=== PATIENT | female | born 1980 | race Caucasian/White ===

== ENCOUNTER 2018-07-24 08:13 | Emergency (ER) | payer OTHER ==
[~2018-07-24] VITALS: Ht 162.6 cm; Wt 81.7 kg
[~2018-07-24 08:13] MED LIST: ANTABUSE250 MG PO; B COMPLETE1 EACH PO; CLINDAMYCIN HC300 MG PO; IBUPROFEN600 MG PO; MELATIN3 MG PO; NORCO 5-325 TA1 EACH PO; SEROQUEL100 MG PO; TRAMADOL HCL50 MG PO; WELLBUTRIN XL300 MG PO
[2018-07-24] MEDS ORDERED: VENTOLIN HFA18 GM INH (08:30)
== END 2018-07-24 09:24 | disposition home or self-care (01) ==
LOC: ED 08:13
DX: J20.9 Acute bronchitis, unspecified (principal); F17.200 Nicotine dependence, unspecified, uncomplicated; Z91.040 Latex allergy status; Z88.0 Allergy status to penicillin
CPT/HCPCS: 71046; 94640; 99283